=== PATIENT | male | born 1940 | race Caucasian/White ===

== ENCOUNTER 2016-12-14 09:33 | Emergency (ER) | payer MEDICARE, BC ==
[2016-12-14 09:42] VITALS: TEMP 98.1
[2016-12-14 09:58] VITALS: PULSE 74; RESP 18; O2SAT 97
[2016-12-14 10:34] LABS: BASOPHILS % (AUTO) 1 % (0-3); EOSINOPHILS % (AUTO) 8 % (0-9); HEMATOCRIT 44 % (39-53); MEAN CORPUSCULAR HGB CONC 34.4 gm/dl (32.0-36.0); MEAN CORPUSCULAR VOLUME 89 fL (80-100); MONOCYTES % (AUTO) 8.1 % (0-12); NEUTROPHILS % (AUTO) 52.9 % (37-80)
[2016-12-14 10:49] LABS: GLOM FILT RATE 92 mL/min (>60); POTASSIUM 3.4 mMol/L (3.5-5.1)
[2016-12-14 10:53] LABS: SODIUM 145 mMol/L (136-145)
[2016-12-14] MEDS ORDERED: POTASSIUM CHLORIDE 10 MEQ TER PO ONE (11:57)
[2016-12-14] MEDS ORDERED: POTASSIUM CHLORIDE 10 MEQ TER ONE (12:04)
[2016-12-14 12:39] VITALS: BP 146/94
== END 2016-12-14 11:53 | disposition home or self-care (01) | DRG 149 ==
LOC: ED 09:33
DX: R42 Dizziness and giddiness (principal); E87.6 Hypokalemia; R55 Syncope and collapse; R06.82 Tachypnea, not elsewhere classified
CPT/HCPCS: 36415; 80048; 83880; 84484; 85025; 85610; 93005; 99283; 99284